=== PATIENT | female | born 1945 | race Caucasian/White ===

== ENCOUNTER → 2017-01-19 | Day surgery (SDC) | payer MEDICARE ==
[~2017-01-19] MED LIST: ALPRAZOLAM PO; ALTACE PO; ALTACE5 M1 PO; AMARYL PO; AMITRIPTYLINE H25 MG PO; ANEXSIA 7.5/3251 TA1 PO; ATORVASTATIN CA40 MG PO; BUSPIRONE HCL10 M1 PO; CALCIUM + D 6001 TA1 PO; CALCIUM 500 + D1 TAB PO; CALCIUM 600 + D1 TAB PO; CERTAGEN PO; CIPRO PO; COLACE PO; CRESTOR PO; CRESTOR10 MG PO; DESYREL50 MG PO; FAMOTIDINE20 M1 PO; FLEXERIL PO; FLEXERIL10 MG PO; FLUOXETINE HCL20 M1 PO; GLIMEPIRIDE1 M1 PO; GLUCOPHAGE XR500 MG PO; HUMALOG MIX 75/10 ML SUBQ; HYDROCODON-ACE1 EACH PO; JANUVIA PO; JENTADUETO 2.51 EAC1 PO; KOMBIGLYZE XR1 EAC1 PO; LANTUS100 U/ML SUBQ; LASIX20 MG PO; LATANOPROST2.5 ML OU; LEVOXYL125 MC1 PO; LINZESS145 MCG PO; LISINOPRIL5 MG PO; METFORMIN HCL500 M1 PO; METFORMIN HCL500 M2 PO; METHADONE HCL10 MG PO; METHADONE PO; METOPROLOL SUCC25 MG PO; MIRALAX255 GM PO; MOBIC PO; MOBIC15 MG PO; MULTI-DAY VITAM1 TAB PO; NAPROSYN500 MG PO; NOVOLOG100 UNITS/ SUBQ; NOVOLOG7030; OMEPRAZOLE40 MG PO; PAXIL CR PO; PROZAC PO; PROZAC40 MG PO; RANITIDINE HCL150 M1 PO; RISPERDAL1 M1 PO; RISPERIDONE PO; SEROQUEL50 MG PO; SYNTHROID PO; SYNTHROID25 MCG PO; TRAMADOL HCL50 M1 PO; TRAZODONE PO; VIT E PO; VITAMIN E1000 UNI1 PO; WELLBUTRIN100 MG PO; XANAX XR1 MG PO; XANAX1 MG PO; ZANAFLEX PO; ZANAFLEX2 M2 PO; ZOCOR PO; [UNRECOGNIZED DRUG - OTHER]
--- NOTE | ~2017-01-19 | OR ---
Unit #: [id number] #: [id number] Patient: MASOUD KLINE [id number] [address] [place], [place] [address] [id number] O MR#: [id number] NAME: MASOUD KLINE ROOM: Date of Procedure: 01/19/2017 Admission Date: 01/19/2017 Surgeon: Pantera Caruso M.D. : 1945 Attending Physician: Pantera Caruso M.D. Primary Care Physician: Zheng Babb M.D. OPERATIVE REPORT PREOPERATIVE DIAGNOSES Neck pain, cervical radiculopathy and cervical disk herniation. POSTOPERATIVE DIAGNOSES Neck pain, cervical radiculopathy and cervical disk herniation. PROCEDURE PERFORMED Cervical epidural steroid injection with intravenous sedation and fluoroscopic guidance for needle localization. HISTORY The patient is a 71-year-old female with return of neck, bilateral upper extremity and occipital neuralgia type headaches due to cervical disk herniations worse at the right at C4-C5 and left at C5-C6. She was last treated with epidural steroid injection about 2 years ago. Prior to that, she had been treated two years before that as well. Based on the symptoms, symptomatology, pathology and treatment options, we are going to proceed with a repeat epidural steroid injection today. DESCRIPTION OF PROCEDURE The patient was placed in the seated position. Standard monitors were applied. Then, 1 mg of Versed was given for sedation and anxiolysis, which was adequate. Vital signs remained stable. Sterile prep and drape then of the cervical area was performed. The skin initially at the C5-C6 level was localized with 1% lidocaine. An 18-gauge Hustead needle was then advanced via hanging drop technique under fluoroscopic guidance in toward the epidural space. The question as to possible dural puncture, though is difficult to assess. The needle was removed and readvanced to the C4-C5 level again via hanging drop technique. After confirming proper positioning with fluoroscopy and radiographic contrast, a dose of 80 mg of Depo-Medrol and 2 mL of 0.25% bupivacaine were deposited. The patient tolerated the procedure otherwise well and was discharged to the recovery room in stable condition. Dictated by... Chandni Grace/cira TD: 01/19/2017 09:07 Unit #: [id number] #: [id number] Patient: MASOUD KLINE JOB #: [id number] CC: [facility] OPERATIVE REPORT Page 1 of 1 X Pantera Caruso MD X PROCEDURE OPERATIVE NOTE
== END | disposition home or self-care (01) ==
LOC: CCSC 07:17
DX: M50.121 Cervical disc disorder at C4-C5 level with radiculopathy (principal); I10 Essential (primary) hypertension; K21.9 Gastro-esophageal reflux disease without esophagitis; M19.90 Unspecified osteoarthritis, unspecified site; F32.9 Major depressive disorder, single episode, unspecified; Z88.2 Allergy status to sulfonamides; Z79.899 Other long term (current) drug therapy; Z79.84 Long term (current) use of oral hypoglycemic drugs; Z79.891 Long term (current) use of opiate analgesic
CPT/HCPCS: J1040; J2250

== ENCOUNTER → 2017-02-02 | Day surgery (SDC) | payer MEDICARE ==
--- NOTE | ~2017-02-02 | OR ---
Unit #: [id number] #: [id number] Patient: MASOUD KLINE [id number] [address] [place], [place] [address] [id number] O MR#: [id number] NAME: MASOUD KLINE ROOM: Date of Procedure: 02/02/2017 Admission Date: 02/02/2017 Surgeon: Pantera Caruso M.D. : 1945 Attending Physician: Pantera Caruso M.D. Primary Care Physician: Zheng Babb M.D. OPERATIVE REPORT PREOPERATIVE DIAGNOSES Neck pain, cervical radiculopathy, cervical disk herniation, cervical spondylosis. POSTOPERATIVE DIAGNOSES Neck pain, cervical radiculopathy, cervical disk herniation, cervical spondylosis. PROCEDURE PERFORMED Cervical epidural steroid injection with intravenous sedation and fluoroscopic guidance for needle localization. INDICATIONS FOR PROCEDURE The patient is a 71-year-old female with worsening neck, bilateral upper extremity pain, and occipital neurologic headaches. She has nonsurgical degenerative cervical disk disease. She has disk herniations at C4-C5 and C5-C6, worse to the right C4-C5 and left at C5-C6. In the past, epidural steroid injection has been very helpful. Last done 2 years ago. She had repeat injection done 2 weeks ago, which resulted in definite additional improvement. She then had a graduate return over the last week and a half to near its baseline. Based on prior history of pathology, symptomatology, and treatment options, we are going to proceed with a second injection today. DESCRIPTION OF PROCEDURE The patient was placed in a seated position. Standard monitors were applied. 1 mg Versed was given for sedation and anxiolysis, which were adequate. Vital signs remained stable. Sterile prep and drape then of the cervical area was performed. The skin then at the C4-L5 level was localized with 1% lidocaine. An 18-gauge IDE[employer] SPHEREtead needle was then advanced via hanging drop technique and fluoroscopic guidance in toward the epidural space. The patient did not complain of pain or paresthesia during needle advancement. After confirming proper positioning with fluoroscopy and radiographic contrast, 80 mg of Depo-Medrol and 2 mL of 0.25% bupivacaine were deposited. The patient tolerated the procedure otherwise well and was discharged to the recovery room in stable condition. Dictated by... Pantera Caruso M.D. [facility] Unit #: [id number] #: [id number] Patient: MASOUD KLINE TD: 02/02/2017 12:06 JOB #: [id number] OPERATIVE REPORT Page 1 of 1 X Pantera Caruso MD X PROCEDURE OPERATIVE NOTE
== END | disposition home or self-care (01) ==
LOC: CCSC 07:41
DX: M50.121 Cervical disc disorder at C4-C5 level with radiculopathy (principal); M50.122 Cervical disc disorder at C5-C6 level with radiculopathy; M47.22 Other spondylosis with radiculopathy, cervical region; I10 Essential (primary) hypertension; M19.90 Unspecified osteoarthritis, unspecified site; K21.9 Gastro-esophageal reflux disease without esophagitis; Z88.2 Allergy status to sulfonamides; Z79.84 Long term (current) use of oral hypoglycemic drugs; Z79.891 Long term (current) use of opiate analgesic; Z79.899 Other long term (current) drug therapy
CPT/HCPCS: J1040; J2250

== ENCOUNTER → 2017-03-02 | Day surgery (SDC) | payer MEDICARE ==
--- NOTE | ~2017-03-02 | OR ---
Unit #: [id number] #: [id number] Patient: MASOUD KLINE [id number] [address] [place], [place] [address] [id number] O MR#: [id number] NAME: MASOUD KLINE ROOM: Date of Procedure: 03/02/2017 Admission Date: 03/02/2017 Surgeon: Pantera Caruso M.D. : 1945 Attending Physician: Pantera Caruso M.D. Primary Care Physician: Zheng Babb M.D. OPERATIVE REPORT PREOPERATIVE DIAGNOSES Neck pain, cervical radiculopathy, cervical herniated nucleus pulposus, cervical disk disease. POSTOPERATIVE DIAGNOSES Neck pain, cervical radiculopathy, cervical herniated nucleus pulposus, cervical disk disease. PROCEDURE PERFORMED Cervical epidural steroid injection with intravenous sedation and fluoroscopic guidance for needle localization. INDICATIONS FOR PROCEDURE The patient is a 71-year-old female, she had return of neck and bilateral upper extremity, bilateral cervicogenic headaches due to multilevel degenerative disk disease. The right-sided herniation at C4-5 and left-sided at C5-6. Degenerative changes from C3 through C7. Epidural steroid injections have been very helpful in the past in 2012 and 2014. She had resurgence of the symptoms, so repeat epidurals were planned to be done at this point. For the last 4 weeks, we gave her additives with significant improvement in her neck and upper extremity pain. She has had some return of the cervicogenic headaches, so we will proceed with a repeat of that. In the past, she has actually also done with lumbar facet disease that was for a different issue. DESCRIPTION OF PROCEDURE The patient was placed in a seated position. Standard monitors were applied. 1 mg of Versed was given for sedation and anxiolysis, which were adequate. Vital signs remained stable. Sterile prep and drape then of the cervical area was performed. The skin at the C4-5 level was localized with 1% lidocaine. An 18-gauge [employer] Pharm[employer]ad needle was then advanced via hanging drop technique and fluoroscopic guidance in toward the epidural space. After confirming proper needle positioning with fluoroscopy and radiographic contrast, 80 mg of Depo-Medrol and 2 mL of 0.125% bupivacaine were deposited. The patient tolerated the procedure otherwise well and was discharged to the recovery room in stable condition. Dictated by... Pantera Caruso M.D. [facility] Unit #: [id number] #: [id number] Patient: MASOUD KLINE TD: 03/02/2017 10:09 JOB #: [id number] OPERATIVE REPORT Page 1 of 1 X Pantera Caruso MD X PROCEDURE OPERATIVE NOTE
== END | disposition home or self-care (01) ==
LOC: CCSC 02-23 08:45
DX: M50.121 Cervical disc disorder at C4-C5 level with radiculopathy (principal); M50.122 Cervical disc disorder at C5-C6 level with radiculopathy; I10 Essential (primary) hypertension; M19.90 Unspecified osteoarthritis, unspecified site; K21.9 Gastro-esophageal reflux disease without esophagitis; F32.9 Major depressive disorder, single episode, unspecified; Z88.2 Allergy status to sulfonamides; Z79.84 Long term (current) use of oral hypoglycemic drugs; Z79.891 Long term (current) use of opiate analgesic; Z79.899 Other long term (current) drug therapy
CPT/HCPCS: J1040; J2250